=== PATIENT | male | born 1985 | race Caucasian/White ===

== ENCOUNTER 2017-03-23 11:31 | Inpatient (IN) | payer OTHER ==
[~2017-03-23] VITALS: Ht 190.5 cm; Wt 87.8 kg
[~2017-03-23 11:31] MED LIST: HYDROXYZINE PAM50 MG PO; NICOTINE T21 MG/24 H T; ONDANSETRON HYDR4 M1 PO; ROBAXIN750 MG PO; Theragran M,Cen1 TAB PO
[2017-03-23 12:28] VITALS: BP 124/68
[2017-03-23 12:46] VITALS: BP 124/68
--- NOTE | 2017-03-23 12:48 | NUR ---
31 year old admitted to room # 246 for stabilization. 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 Compliant with admission procedure. Patient denies any anxiety, but is unable to sit still, taps toes to floor continuously, looks about room, unable to focus eyes on nurse during interview. See assessment forms for additional information about patient status.
[2017-03-23 12:56] LABS: BASO # 0.1 10*3/uL (0.0-0.1); BASO % 0.7 % (0.0-1.0); EOS # 0.3 10*3/uL (0.0-0.4); EOS % 3.3 % (1.0-4.0); HEMATOCRIT 42.3 % (42.0-52.0); HEMOGLOBIN 14.4 g/dl (14.0-18.0); LYMPH # 1.6 10*3/uL (1.3-4.4); LYMPH % 18.3 % (27.0-41.0); MEAN CELL VOLUME 84.8 fl (80.0-94.0); MEAN CORPUSCULAR HGB 28.9 pg (27.0-31.0); MEAN PLATELET VOLUME 8.6 fl (9.6-12.3); MONO # 0.5 10*3/uL (0.1-1.0); MONO % 5.8 % (3.0-9.0); NEUT # 6.4 10*3/uL (2.3-7.9); NEUT % 71.5 % (47.0-73.0); PLATELET COUNT AUTOMATED 280 10*3/uL (130-400); RED BLOOD COUNT 4.99 10*6/uL (4.50-5.90); RED CELL DISTRI WIDTH 12.5 % (0-14.5); WHITE BLOOD COUNT 8.9 10*3/uL (4.8-10.8)
[2017-03-23 13:13] LABS: ALBUMIN 3.8 gm/dl (3.1-4.5); ALKALINE PHOSPHATASE 51 U/L (45-117); BUN 12 mg/dl (7-24); CHLORIDE 109 mmol/L (98-107); CREATININE 0.94 mg/dL (0.70-1.30); ETHYL ALCOHOL < 3.0 mg/dl (<3); POTASSIUM 4.4 mmol/L (3.5-5.1); SGOT/AST 24 IU/L (3-35); SGPT/ALT 57 U/L (12-78); SODIUM 143 mmol/L (136-145); TOTAL PROTEIN 7.8 gm/dL (6.4-8.2)
[2017-03-23 13:32] LABS: BILIRUBIN NEGATIVE (NEGATIVE); BLOOD NEGATIVE (NEGATIVE); CLARITY CLEAR (CLEAR); COLOR YELLOW (YELLOW); GLUCOSE NEGATIVE (NEGATIVE); KETONE NEGATIVE (NEGATIVE); LEUKO ESTERASE NEGATIVE (NEGATIVE); NITRITE NEGATIVE (NEGATIVE); SPECIFIC GRAVITY 1.015 (1.005-1.030)
[2017-03-23 13:46] LABS: URINE AMPHETAMINES < 1000 (1000ng/ml); URINE BARBITURATES < 200 (200ng/ml); URINE BENZODIAZEPINES < 200 (200ng/ml); URINE CANNABINOIDS (THC) < 50 (50ng/ml); URINE COCAINE > 300 (300ng/ml); URINE METHADONE < 300 (300ng/ml); URINE OPIATES < 300 (300ng/ml)
[2017-03-23 13:48] LABS: EPITHELIAL CELLS 0-2; MUCOUS 2+; WBC 0-2 wbc/hpf (0-5)
[2017-03-23 13:54] LABS: URINE PHENCYCLIDINE < 25 (25ng/ml)
--- NOTE | 2017-03-23 14:07 | NUR ---
new vision meds started, subutex,requip,robaxin,vistaril,bentyl,zofran and nicotine patch
[2017-03-23 16:00] VITALS: BP 118/59
--- NOTE | 2017-03-23 16:34 | NUR ---
STATES PRN NEW VISION MEDS HAVE HELPED HIM, HE NO LONGER FEELS LIKE HIS SKIN IS CRAWLING OR JUMPY
[2017-03-23 20:43] VITALS: BP 124/70
--- NOTE | 2017-03-23 22:00 | NUR ---
PRN REQUIP GIVEN FOR MUSCLE SPASMS, VISTARIL WAS GIVEN FOR PATIENTS C/O ANXIETY AND RESTLESSNESS, AND TRAZADONE WAS GIVEN TO HELP WITH INSOMNIA. WILL MONITOR AND FOLLOW UP.
--- NOTE | 2017-03-23 23:05 | NUR ---
PATIENT STATES THAT THE PRN MEDS ARE HELPING WITH WITHDRAWL SYMPTOMS. PATIENT STATED HE WOULD LIKE A SLEEPING PILL. TRAZADONE GIVEN. WILL MONITOR AND REASSESS.
--- NOTE | 2017-03-23 23:20 | NUR ---
PT MEDICATED @ 1999 WITH PRN NV PROTOCOL MEDS. ZOFRAN, MOTRIN, ROBAXIN, VISTARIL, BENTYL FOR WITHDRAWAL SYMPTOMS. PT STATES STOMACH CRAMPING AND SKIN CRAWLING. UPON FURTHER ASSESSMNET PT STATES RELIEF OF SYMTPOMS
[2017-03-24] VITALS: BP 107/48
--- NOTE | 2017-03-24 00:20 | NUR ---
24 HR chart check completed.
[2017-03-24 08:00] VITALS: BP 110/56
--- NOTE | 2017-03-24 08:22 | NUR ---
MEDCIATED WITH VISTARIL AND MOTRIN PO FOR COMPLAINTS OF BODY ACHES AND SKIN CRAWLING.
--- NOTE | 2017-03-24 09:00 | NUR ---
VISTARIL EFFECTIVE FOR ANXIETY.
[2017-03-24 12:00] VITALS: BP 110/56
--- NOTE | 2017-03-24 13:33 | NUR ---
MEDICATED WITH SUBUTEX PRESCRIBED AND VISTARIL FOR ANXIETY.
--- NOTE | 2017-03-24 15:30 | NUR ---
D/C PLANNING: PATIENT WANTS INPATIENT TREATMENT. PATIENT IS SET UP TO GO TO [facility] ON THURSDAY THE . PATIENT IS WORKING ON TRANSPORTATION. [employer] ARCHITECT WILL FOLLOW-UP WITH PATIENT. GONZALEZ KIM B.A. [employer] ARCHITECT
[2017-03-24 16:00] VITALS: BP 105/56
--- NOTE | 2017-03-24 19:45 | NUR ---
24 HR chart check completed.
[2017-03-24 20:00] VITALS: BP 142/71
--- NOTE | 2017-03-24 22:45 | NUR ---
TRAZADONE WAS NOT EFFECTIVE, PATIENT WAS STILL AWAKE, BUT SAID HE IS "OK".
[2017-03-25] VITALS: BP 127/55
--- NOTE | 2017-03-25 06:31 | NUR ---
SCEDULED SUBUTEX WAS GIVEN FOR OPIATE WITHDRAW. PRN VISTARIL AND ROBAXIN WERE GIVEN FOR PATIENTS C/O MUSCLE SPASMS/CRAMPING AND ANXIETY. WILL MONITOR.
--- NOTE | 2017-03-25 06:50 | NUR ---
VISTARIL AND ROBAXIN EFFECTIVE. PATIENT ASLEEP WITH RESPIRATIONS >12.
[2017-03-25 08:00] VITALS: BP 106/50
[2017-03-25 12:00] VITALS: BP 128/62
--- NOTE | 2017-03-25 13:18 | NUR ---
D/C PLAN: PATIENT IS SCHEDULED TO GO TO [facility] UPON DISCHARGE. PATIENT SET UP TRANSPORTATION. PATIENT AGREES AND UNDERSTANDS HIS AFTERCARE PLAN. GONZALEZ KIM B.A. CLAIM TAKER
[2017-03-25 16:00] VITALS: BP 131/65
--- NOTE | 2017-03-25 16:30 | NUR ---
MEDICATED WITH PRN PO MOTRIN AND ROBAXIN FOR LOWER BACK PAIN AND MUSCLE CRAMPS, ALSO VISTARIL FOR ANXIETY, BENTYL FOR ABDOMINAL CRAMPS, AND APPLIED NICOTINE PATCH FOR SMOKING CRAVINGS.
--- NOTE | 2017-03-25 17:17 | NUR ---
Patient resting. Responding to scheduled medications with fewer complaints of pain and anxiety.
--- NOTE | 2017-03-25 19:30 | NUR ---
PT. IS RESTING COMFORTABLY IN BED WATCHING TV AT THIS TIME. DENIES ANY SYMPTOMS OF WITHDRAWL AT THIS PRESENT TIME. CALL LIGHT IS WITHIN REACH AND HOB ELEVATED, SEE SHIFT ASSESSMENT.
[2017-03-25 20:00] VITALS: BP 135/70
[2017-03-26] VITALS: BP 128/66
--- NOTE | 2017-03-26 00:48 | NUR ---
THE FOLLOWING PRN MEDICATIONS HAVE BEEN GIVEN PER PT. REQUEST: BENTYL FOR STOMACH CRAMPS, REQUIP FOR RESTLESS LEGS, ROBAXIN FOR GENERALIZED MUSCLE ACHES, AND VISTARIL FOR ANXIETY. WILL CONTINUE TO MONITOR.
--- NOTE | 2017-03-26 05:17 | NUR ---
24 HR chart check completed.
[2017-03-26 06:16] LABS: BASO # 0.1 10*3/uL (0.0-0.1); BASO % 0.9 % (0.0-1.0); EOS # 0.4 10*3/uL (0.0-0.4); EOS % 7.1 % (1.0-4.0); HEMATOCRIT 36.8 % (42.0-52.0); HEMOGLOBIN 12.6 g/dl (14.0-18.0); LYMPH # 2.1 10*3/uL (1.3-4.4); LYMPH % 36.1 % (27.0-41.0); MEAN CELL VOLUME 85.4 fl (80.0-94.0); MEAN CORPUSCULAR HGB 29.2 pg (27.0-31.0); MEAN CORPUSCULAR HGB CONC 34.2 g/dl (33.0-37.0); MEAN PLATELET VOLUME 8.7 fl (9.6-12.3); MONO # 0.5 10*3/uL (0.1-1.0); MONO % 8.2 % (3.0-9.0); NEUT # 2.8 10*3/uL (2.3-7.9); NEUT % 46.7 % (47.0-73.0); PLATELET COUNT AUTOMATED 233 10*3/uL (130-400); RED BLOOD COUNT 4.31 10*6/uL (4.50-5.90); RED CELL DISTRI WIDTH 12.4 % (0-14.5); WHITE BLOOD COUNT 5.9 10*3/uL (4.8-10.8)
[2017-03-26 06:48] LABS: CREATININE 0.85 mg/dL (0.70-1.30)
[2017-03-26 08:00] VITALS: BP 121/74
[2017-03-26] MEDS ORDERED: REQUIP0.5 MG PO (12:14)
[2017-03-26] MEDS ORDERED: Zofran4 MG SL (12:14)
[2017-03-26] MEDS ORDERED: VISTARIL25 MG PO (12:14)
--- NOTE | 2017-03-26 12:21 | NUR ---
Discharge instructions reviewed with patient/family. Patient receptive and verbalizes understanding. Follow-up care arranged. Written instructions given to patient/family. JON QUINTERO
== END 2017-03-26 12:21 | disposition home or self-care (01) | DRG 897 ==
LOC: 4E 11:31
PROVIDERS: Internal Medicine; ADMIT Internal Medicine
DX: F11.23 Opioid dependence with withdrawal (principal); E87.8 Other disorders of electrolyte and fluid balance, not elsewhere classified; D72.810 Lymphocytopenia; F14.10 Cocaine abuse, uncomplicated; Z90.49 Acquired absence of other specified parts of digestive tract; F17.210 Nicotine dependence, cigarettes, uncomplicated